=== PATIENT | male | born 1970 | race African-American/Black ===

== ENCOUNTER 2018-05-23 12:02 | Emergency (ER) | payer MEDICAID ==
[~2018-05-23] VITALS: Ht 188 cm; Wt 137.0 kg
[2018-05-23] MEDS ORDERED: KETOROLAC 60MG/2ML VIAL IM STA (12:41)
[2018-05-23 13:10] LABS: BASOPHILS % 0.8 % (0.0-2.0); EOSINOPHILS % 1.9 % (0.0-5.0); HEMATOCRIT. 45.6 % (42.0-52.0); HEMOGLOBIN. 15.5 g/dL (14.0-18.0); LYMPHOCYTES % 42.7 % (20.0-50.0); MEAN CORPUSCULAR VOLUME 82.5 fL (80.0-94.0); MEAN PLATELET VOLUME 7.1 fl (7.4-10.4); MONOCYTES % 5.7 % (2.0-8.0); NEUTROPHILS % 48.9 % (40.0-76.0); PLATELET 218 x1000/uL (130-400); RED BLOOD CELL COUNT 5.53 mill/uL (4.7-6.1); RED CELL DISTRIBUTION WIDTH 16.4 % (11.6-14.6)
[2018-05-23 13:18] LABS: CHLORIDE 107 mEq/L (98-107)
[2018-05-23 14:52] VITALS: BP 154/81
== END 2018-05-23 15:03 | disposition home or self-care (01) ==
LOC: ER 12:02
DX: J40 Bronchitis, not specified as acute or chronic (principal); F17.210 Nicotine dependence, cigarettes, uncomplicated; Z71.6 Tobacco abuse counseling
CPT/HCPCS: 36415; 71045; 80053; 83036; 85025; 93005; 96372; 99285; 99406; J1885

== ENCOUNTER 2019-02-22 05:30 | Emergency (ER) | payer MEDICAID ==
[~2019-02-22] VITALS: Ht 177.8 cm; Wt 143.0 kg
[2019-02-22] MEDS ORDERED: DEXAMETHASONE 10 MG/ML VIAL IM ONE (07:30)
[2019-02-22] MEDS ORDERED: CLINDAMYCIN HCL 150MG CAPSULE PO ONE (07:30)
[2019-02-22] MEDS ORDERED: KETOROLAC 60MG/2ML VIAL IM ONE (07:30)
[2019-02-22] MEDS ORDERED: PENICILLIN G BENZATHINE 1,200,000 UNITS/2ML SYR IM ONE (07:30)
[2019-02-22 07:58] VITALS: BP 167/94
== END 2019-02-22 09:28 | disposition home or self-care (01) ==
LOC: ER 05:47
DX: J36 Peritonsillar abscess (principal); E11.9 Type 2 diabetes mellitus without complications; E78.00 Pure hypercholesterolemia, unspecified; I10 Essential (primary) hypertension; F17.200 Nicotine dependence, unspecified, uncomplicated; F12.10 Cannabis abuse, uncomplicated; Z98.890 Other specified postprocedural states
CPT/HCPCS: 96372; 99283; J0561; J1100; J1885

== ENCOUNTER 2019-03-27 15:47 | Emergency (ER) | payer MEDICAID ==
[~2019-03-27] VITALS: Ht 185.4 cm; Wt 138.0 kg
[2019-03-27] MEDS ORDERED: SODIUM CHLORIDE 0.9% 1,000 ML IV ONE (17:18)
[2019-03-27] MEDS ORDERED: ONDANSETRON HCL 4MG/2ML INJ IV STA (17:18)
[2019-03-27] MEDS ORDERED: MORPHINE SULFATE 4 MG/ML CPJ (NOT FOR IM USE) IV STA (17:18)
[2019-03-27 17:35] LABS: BASOPHILS % 0.9 % (0.0-2.0); EOSINOPHILS % 1.3 % (0.0-5.0); HEMATOCRIT. 46.4 % (42.0-52.0); LYMPHOCYTES % 34.6 % (20.0-50.0); MEAN CORPUSCULAR HEMOGLOBIN 28.1 pg (28.0-32.0); MEAN CORPUSCULAR VOLUME 81.2 fL (80.0-94.0); MEAN PLATELET VOLUME 7.8 fl (7.4-10.4); MONOCYTES % 9.3 % (2.0-8.0); NEUTROPHILS % 53.9 % (40.0-76.0); PLATELET 233 x1000/uL (130-400); RED BLOOD CELL COUNT 5.71 mill/uL (4.7-6.1); RED CELL DISTRIBUTION WIDTH 14.4 % (11.6-14.6)
[2019-03-27 17:38] LABS: CHLORIDE 108 mEq/L (98-107)
[2019-03-27 17:42] LABS: ETHANOL BLOOD < 10 mg/dL
[2019-03-27 17:43] LABS: PARTIAL THROMBOPLASTIN TIME 22.2 sec (23.4-31.0); PROTHROMBIN TIME 9.9 sec (9.6-11.0)
[2019-03-27 17:45] LABS: AMYLASE 75 IU/L (25-115)
[2019-03-27 17:48] LABS: BETA HYDROXYBUTYRATE 0.1 mMol/L (0.0-0.3)
[2019-03-27 17:48] LABS: BG BASE EXCESS -2.8 mmol/L (-2.0-2.0); BG CARBOXYHEMOGLOBIN 2.1 % (0.5-1.5); BG FRACTION INSPIRED OXYGEN 21; BG HCO3 ACT 20.5 mmol/L (22.0-26.0); BG METHEMOGLOBIN 0.3 % (0.0-1.5); BG OXYGEN SATURATION 94.9 % (92.0-98.5); BG OXYHEMOGLOBIN 92.6 % (94.0-97.0); BG PCO2 31.9 mmHg (35.0-45.0); BG PH 7.425 (7.350-7.450); BG PO2 71.8 mmHg (75.0-100.0); BG SAMPLE SITE RIGHT RADIAL; BG TOTAL HEMOGLOBIN 16.1 g/dL (12.0-18.0); BG VENT MODE ROOM AIR
[2019-03-27] MEDS ORDERED: HYDROCODONE/ACETAMINOPHEN 5/325MG TABLET PO ONE (19:15)
[2019-03-27] MEDS ORDERED: LORAZEPAM 2MG/ML CPJ IV ONE (19:45)
[2019-03-27 21:59] VITALS: BP 143/84
== END 2019-03-27 22:36 | disposition home or self-care (01) ==
LOC: ER 15:47 → CANBEDREQ 23:23
DX: R10.84 Generalized abdominal pain (principal); E11.65 Type 2 diabetes mellitus with hyperglycemia; E86.0 Dehydration; I10 Essential (primary) hypertension; J98.11 Atelectasis; F17.210 Nicotine dependence, cigarettes, uncomplicated; F12.90 Cannabis use, unspecified, uncomplicated; Z71.6 Tobacco abuse counseling; Z79.4 Long term (current) use of insulin
CPT/HCPCS: 36415; 36600; 71045; 74176; 80053; 80320; 82010; 82150; 82375; 82805; 82962; 83690; 83880; 84484; 85025; 85610; 85730; 93005; 96361; 96374; 96375; 99284; 99406; J2060; J2270; J2405; J7030; J7040; Z7610; G0480

== ENCOUNTER 2019-11-05 23:30 | Inpatient (IN) | payer MEDICAID ==
[~2019-11-05] VITALS: Ht 190.5 cm; Wt 127.5 kg
[2019-11-06 00:52] LABS: BASOPHILS % 0.9 % (0.0-2.0); EOSINOPHILS % 1.1 % (0.0-5.0); HEMATOCRIT. 49.6 % (42.0-52.0); HEMOGLOBIN. 17.3 g/dL (14.0-18.0); LYMPHOCYTES % 46.6 % (20.0-50.0); MEAN CORPUSCULAR HEMOGLOBIN 29.1 pg (28.0-32.0); MEAN CORPUSCULAR VOLUME 83.5 fL (80.0-94.0); MEAN PLATELET VOLUME 9.7 fl (7.4-10.4); MONOCYTES % 7.8 % (2.0-8.0); NEUTROPHILS % 43.6 % (40.0-76.0); PLATELET 186 x1000/uL (130-400); RED BLOOD CELL COUNT 5.94 mill/uL (4.7-6.1); RED CELL DISTRIBUTION WIDTH 13.8 % (11.6-14.6)
[2019-11-06 00:57] LABS: CHLORIDE 92 mEq/L (98-107)
[2019-11-06 01:03] LABS: BETA HYDROXYBUTYRATE 0.3 mMol/L (0.0-0.3)
[2019-11-06 01:06] LABS: CLARITY URINE CLEAR (CLEAR); COLOR URINE YELLOW (YELLOW); KETONES URINE NEGATIVE (NEGATIVE); LEUKOCYTE ESTERASE URINE NEGATIVE (NEGATIVE); NITRITE URINE NEGATIVE (NEGATIVE); OCCULT BLOOD URINE NEGATIVE (NEGATIVE); PROTEIN URINE NEGATIVE (NEGATIVE); SPECIFIC GRAVITY URINE 1.029 (1.005-1.030); UROBILINOGEN URINE 0.2 E.U./dL (0.2-1.0)
[2019-11-06] MEDS ORDERED: SODIUM CHLORIDE 0.9% 1,000 ML IV ONE (02:01)
[2019-11-06] MEDS ORDERED: INSULIN REGULAR (HUMULIN R) 300UNITS/3ML SUBCUT ONE (02:15)
[2019-11-06] MEDS ORDERED: KETOROLAC 30MG/ML VIAL IV ONE (04:30)
[2019-11-06] MEDS ORDERED: INSULIN REGULAR (HUMULIN R) 300UNITS/3ML SUBCUT SCH (06:07)
[2019-11-06] MEDS: MORPHINE SULFATE 2 MG/ML CPJ (NOT FOR IM USE) IV PRN ×3 (06:20→18:55)
[2019-11-06] MEDS ORDERED: ACETAMINOPHEN 325MG TABLET PO PRN (11:45)
[2019-11-06] MEDS ORDERED: DEXTROSE 50% WATER 50ML SYRINGE IV PRN (11:45)
[2019-11-06] MEDS ORDERED: ONDANSETRON HCL 4MG/2ML INJ IV PRN (11:45)
[2019-11-06] MEDS ORDERED: INSULIN LISPRO 100 UNITS/ML SUBCUT NR (12:15)
[2019-11-06 12:53] LABS: CHLORIDE 102 mEq/L (98-107)
[2019-11-06] MEDS ORDERED: DIPHENHYDRAMINE 50MG/ML VIAL IV PRN (13:00)
[2019-11-06] MEDS: BLOOD SUGAR DIAGNOSTIC STRIP TEST SCH ×3 (13:07→21:00)
[2019-11-06] MEDS ORDERED: INSULIN LISPRO 100 UNITS/ML SUBCUT SCH (15:15)
[2019-11-06 18:00] VITALS: BP 115/77
[2019-11-06] MEDS: INSULIN LISPRO 100 UNITS/ML SUBCUT SCH ×2 (18:55→22:41)
[2019-11-06 20:00] VITALS: BP_SYST 120; BP_DIAS 66; BP_DIAS 76
[2019-11-06] MEDS: FAMOTIDINE 20MG/2ML VIAL IV SCH (21:47)
[2019-11-06] MEDS: SODIUM CHLORIDE 0.9% 1,000 ML IV SCH (21:48)
[2019-11-06] MEDS: AMLODIPINE 5MG TABLET PO SCH (21:49)
[2019-11-06] MEDS ORDERED: INSULIN GLARGINE UD 100 UNITS/ML SYR SUBCUT SCH (22:00)
[2019-11-07] VITALS: BP 110/72
[2019-11-07 04:00] VITALS: BP 129/90
[2019-11-07] MEDS: SODIUM CHLORIDE 0.9% 1,000 ML IV SCH (04:50)
[2019-11-07] MEDS ORDERED: SIMV10TA97 MT (05:56)
[2019-11-07] MEDS ORDERED: AMLO-78 MT (05:56)
[2019-11-07] MEDS ORDERED: ASPI-1497 MT (05:56)
[2019-11-07] MEDS ORDERED: MIRT30TA MT (05:56)
[2019-11-07] MEDS ORDERED: ZIPR40CA2 MT (05:56)
[2019-11-07] MEDS ORDERED: METF-414 MT (05:56)
[2019-11-07] MEDS: BLOOD SUGAR DIAGNOSTIC STRIP TEST SCH ×2 (06:45→13:07)
[2019-11-07] MEDS: INSULIN LISPRO 100 UNITS/ML SUBCUT SCH ×4 (07:48→17:43)
[2019-11-07 08:00] VITALS: BP 149/88
[2019-11-07] MEDS: AMLODIPINE 5MG TABLET PO SCH (09:21)
[2019-11-07] MEDS: FAMOTIDINE 20MG/2ML VIAL IV SCH (09:21)
[2019-11-07 12:00] VITALS: BP 139/99
[2019-11-07 16:00] VITALS: BP 154/96
[2019-11-07 16:36] LABS: CHLORIDE 106 mEq/L (98-107)
[2019-11-07] MEDS ORDERED: FAMOTIDINE 20MG TABLET PO SCH (21:00)
[2019-11-07] MEDS ORDERED: INSULIN GLARGINE UD 100 UNITS/ML SYR SUBCUT SCH (22:00)
[2019-11-08] MEDS ORDERED: GLIPIZIDE 5MG TABLET PO SCH (07:20)
== END 2019-11-07 18:27 | disposition home or self-care (01) | DRG 420 ==
LOC: ER 23:30 → EDBEDREQ 11-06 02:44 → ENRESERV 11-06 03:51 → UNDOADMIN 11-06 03:51 → CANRESERV 11-06 03:51 → 5WST 11-06 03:51 → ENRESERV 11-06 16:04 → 6EST 11-07 11:11
PROVIDERS: ADMIT Internal Medicine; ATTEND Internal Medicine
DX: E11.00 Type 2 diabetes mellitus with hyperosmolarity without nonketotic hyperglycemic-hyperosmolar coma (NKHHC) (principal); E87.8 Other disorders of electrolyte and fluid balance, not elsewhere classified; E11.65 Type 2 diabetes mellitus with hyperglycemia; E87.1 Hypo-osmolality and hyponatremia; E66.9 Obesity, unspecified; F17.210 Nicotine dependence, cigarettes, uncomplicated; I10 Essential (primary) hypertension; T78.3XXA Angioneurotic edema, initial encounter; Z68.35 Body mass index [BMI] 35.0-35.9, adult; Z79.899 Other long term (current) drug therapy; Z71.89 Other specified counseling; Z71.6 Tobacco abuse counseling
CPT/HCPCS: 36415; 71045; 80048; 80053; 81003; 82010; 82962; 83036; 85025; 93005; 99285; J1200; J1815; J1885; J2270; J3490; J7030

== ENCOUNTER 2019-12-11 13:00 | Emergency (ER) | payer MEDICAID ==
[~2019-12-11] VITALS: Ht 188 cm; Wt 140.5 kg
[~2019-12-11 13:00] MED LIST: AMLO-78 MT; ASPI-1497 MT; METF-414 MT; MIRT30TA MT; SIMV10TA97 MT; ZIPR40CA2 MT
[2019-12-11 13:11] VITALS: BP 150/102
== END 2019-12-11 14:32 | disposition home or self-care (01) ==
LOC: ER 13:00
DX: H53.8 Other visual disturbances (principal); H52.13 Myopia, bilateral; E11.9 Type 2 diabetes mellitus without complications; I10 Essential (primary) hypertension; E78.00 Pure hypercholesterolemia, unspecified; Z79.899 Other long term (current) drug therapy
CPT/HCPCS: 99281